=== PATIENT | female | born 1975 | race Two or more races ===

== ENCOUNTER 2021-04-04 17:27 | Emergency (ER) | payer BC, MEDICAID, OTHER ==
[~2021-04-04] VITALS: Ht 170.2 cm; Wt 99.8 kg
[2021-04-04] MEDS ORDERED: LIDOCAINE 1% HCL (LOCAL ANESTH.) INJ 20ML MDV IJ ONE (22:45)
[2021-04-04] MEDS ORDERED: ACETAMINOPHEN 500 MG TAB PO ONE (22:45)
[2021-04-04 22:48] VITALS: BP 102/75
[2021-04-04] MEDS ORDERED: TETANUS-DIPTH-ACEL PERTUSSIS 0.5ML SYR Tdap IM ONE (23:45)
[2021-04-05] MEDS ORDERED: NEOMYCIN-BACITRACIN-POLYM UNITDOSE PKG TOP OINT TOP ONE
== END 2021-04-05 00:03 | disposition home or self-care (01) ==
LOC: ER 17:27 → EDBD 17:27 → ER 04-05 00:03
DX: S63.256A Unspecified dislocation of right little finger, initial encounter (principal); S61.216A Laceration without foreign body of right little finger without damage to nail, initial encounter; E66.9 Obesity, unspecified; Z88.1 Allergy status to other antibiotic agents; Z23 Encounter for immunization; Z68.34 Body mass index [BMI] 34.0-34.9, adult; V43.52XA Car driver injured in collision with other type car in traffic accident, initial encounter; Y93.89 Activity, other specified; Y92.488 Other paved roadways as the place of occurrence of the external cause; Y99.8 Other external cause status
CPT/HCPCS: 26770; 73130; 76700; 90471; 90715; 99285; J2001